=== PATIENT | female | born 1980 ===

== ENCOUNTER 2021-04-24 18:52 | Emergency (ER) | payer SELFPAY ==
[~2021-04-24] VITALS: Ht 152 cm; Wt 73.9 kg
[2021-04-24] MEDS ORDERED: KETOROLAC 30 MG/ML VIAL IVP ONE (19:30)
[2021-04-24] MEDS ORDERED: LACTATED RINGERS 1,000 ML IV ONE (19:30)
[2021-04-24] MEDS ORDERED: PANTOPRAZOLE 40 MG (PROTONIX) VIAL IV ONE (19:30)
[2021-04-24] MEDS ORDERED: ONDANSETRON 4 MG/2 ML (SDV) Z0FRAN IVP ONE (19:30)
--- NOTE | 2021-04-24 19:31 | ED Abdominal Pain ---
General Chief Complaint: Abdominal/GI Problems Stated Complaint: UPPER R SIDE PAIN Source of Information: Patient Exam Limitations: No Limitations History of Present Illness Date Seen by Provider: Apr 24, 2021 Time Seen by Provider: 19:10 Initial Comments Patient presents ER by private conveyance with her significant other and chief c anshu of intermittent abdominal pain going on for the past several months. Usually after drinking a lot for eating large meals. She has complained of early satiety for the past several months. This episode started sometime last night around 8 in the evening. Couple hours prior to that she had eaten sopas and fried chicken. She drinks malt liquor on a daily basis and had a couple beers earlier which made her pain worse. She denies having a history of any work-up for this. She has not take any medicine for it either. She says she is scared to work it up because she is afraid she might get bad news. She has had nausea but no fevers or vomiting. She had a bowel movement yesterday which was normal a little bit on the loose side she says. G1, P0, E. Ab 1. No history of abdominal surgeries. Allergies and Home Medications Allergies Coded Allergies: No Known Drug Allergies (Unverified , 04/24/21) Patient Home Medication List Home Medication List Reviewed: Yes Review of Systems Review of Systems Constitutional: No chills, No fever, No malaise EENTM: No Blurred Vision, No Double Vision Respiratory: Denies Cough, Denies Shortness of Air Cardiovascular: Denies Chest Pain, Denies Lightheadedness Gastrointestinal: See HPI, Abdominal Pain; Denies Constipated, Denies Diarrhea Genitourinary: Denies Burning, Denies Discharge Musculoskeletal: No back pain, No gout Psychiatric/Neurological: Denies Anxiety, Denies Depressed All Other Systems Reviewed Negative Unless Noted: Yes Past Vzgkthq-Umerby-Bkqtin Hx Patient Social History Alcohol Use: Regular Use Alcohol Beverage of Choice: Beer (Multiple drinks per day) Smoking Status: Current Everyday Smoker Physical Exam Vital Signs Vital Signs - First Documented 04/24/21 19:10 Temp 36.5 Pulse 90 B/P (MAP) 119/97 (104) O2 Delivery Room Air Capillary Refill : Height/Weight/BMI Height: '" Weight: lbs. oz. kg; BMI Method: General Appearance: WD/WN, mild distress HEENT: normal ENT inspection, pharynx normal Neck: full range of motion, supple, normal inspection Respiratory: lungs clear, normal breath sounds, no respiratory distress, no accessory muscle use Cardiovascular: normal peripheral pulses, regular rate, rhythm Gastrointestinal: normal bowel sounds, soft, tenderness (Right upper quadrant tenderness palpation without Cardona sign.), other (Negative for McBurney's point psoas sign or mesenteric signs) Extremities: normal range of motion, non-tender, normal capillary refill Neurologic/Psychiatric: alert, oriented x 3, other (Anxious affect) Progress/Results/Core Measures Results/Orders Lab Results Laboratory Tests Test 04/24/21 19:30 04/24/21 19:35 Range/Units White Blood Count 8.2 4.3-11.0 10^3/uL Red Blood Count 4.16 3.80-5.11 10^6/uL Hemoglobin 14.5 11.5-16.0 g/dL Hematocrit 41 35-52 % Mean Corpuscular Volume 99 80-99 fL Mean Corpuscular Hemoglobin 35 H 25-34 pg Mean Corpuscular Hemoglobin Concent 35 32-36 g/dL Red Cell Distribution Width 13.0 10.0-14.5 % Platelet Count 211 130-400 10^3/uL Mean Platelet Volume 10.8 9.0-12.2 fL Immature Granulocyte % (Auto) 0 % Neutrophils (%) (Auto) 54 42-75 % Lymphocytes (%) (Auto) 39 12-44 % Monocytes (%) (Auto) 6 0-12 % Eosinophils (%) (Auto) 1 0-10 % Basophils (%) (Auto) 0 0-10 % Neutrophils # (Auto) 4.4 1.8-7.8 10^3/uL Lymphocytes # (Auto) 3.2 1.0-4.0 10^3/uL Monocytes # (Auto) 0.5 0.0-1.0 10^3/uL Eosinophils # (Auto) 0.1 0.0-0.3 10^3/uL Basophils # (Auto) 0.0 0.0-0.1 10^3/uL Immature Granulocyte # (Auto) 0.0 0.0-0.1 10^3/uL Sodium Level 141 135-145 MMOL/L Potassium Level 2.8 L 3.6-5.0 MMOL/L Chloride Level 103 98-107 MMOL/L Carbon Dioxide Level 22 21-32 MMOL/L Anion Gap 16 H 5-14 MMOL/L Blood Urea Nitrogen 4 L 7-18 MG/DL Creatinine 0.69 0.60-1.30 MG/DL Estimat Glomerular Filtration Rate > 60 BUN/Creatinine Ratio 6 Glucose Level 107 H 70-105 MG/DL Calcium Level 8.7 8.5-10.1 MG/DL Corrected Calcium 8.6 8.5-10.1 MG/DL Total Bilirubin 0.4 0.1-1.0 MG/DL Aspartate Amino Transf (AST/SGOT) 95 H 5-34 U/L Alanine Aminotransferase (ALT/SGPT) 71 H 0-55 U/L Alkaline Phosphatase 92 40-136 U/L C-Reactive Protein High Sensitivity 0.16 0.00-0.50 MG/DL Total Protein 7.6 6.4-8.2 GM/DL Albumin 4.1 3.2-4.5 GM/DL Lipase 16 8-78 U/L Urine Color YELLOW Urine Clarity CLEAR Urine pH 6.5 5-9 Urine Specific [place] <=1.005 1.016-1.022 Urine Protein NEGATIVE NEGATIVE Urine Glucose (UA) NEGATIVE NEGATIVE Urine Ketones NEGATIVE NEGATIVE Urine Nitrite NEGATIVE NEGATIVE Urine Bilirubin NEGATIVE NEGATIVE Urine Urobilinogen 0.2 < = 1.0 MG/DL Urine Leukocyte Esterase NEGATIVE NEGATIVE Urine RBC (Auto) NEGATIVE NEGATIVE Urine RBC NONE /HPF Urine WBC NONE /HPF Urine Squamous Epithelial Cells 0-2 /HPF Urine Crystals NONE /LPF Urine Bacteria NEGATIVE /HPF Urine Casts NONE /LPF Urine Mucus NEGATIVE /LPF Urine Culture Indicated NO My Orders Orders - TANGELA TRIMBLE Ua Culture If Indicated (04/24/21 18:57) Urine Bedside (04/24/21 18:57) Cbc With Automated Diff (04/24/21 19:24) Comprehensive Metabolic Panel (04/24/21 19:24) Hs C Reactive Protein (04/24/21 19:24) Lipase (04/24/21 19:24) Ondansetron Injection (Zofran Injectio (04/24/21 19:30) Pantoprazole Injection (Protonix Injecti (04/24/21 19:30) Ketorolac Injection (Toradol Injection) (04/24/21 19:30) Ed Iv/Invasive Line Start (04/24/21 19:25) Lactated Ringers (Lr 1000 Ml Iv Solution (04/24/21 19:30) Medications Given in ED Current Medications Medications Dose Ordered Sig/Dagoberto Route Start Time Stop Time Status Last Admin Dose Admin Ketorolac Tromethamine 30 mg ONCE ONCE IVP 04/24/21 19:30 04/24/21 19:31 DC 04/24/21 19:42 30 MG Lactated Ringer's 1,000 ml @ 0 mls/hr Q0M ONCE IV 04/24/21 19:30 04/24/21 19:31 DC 04/24/21 19:38 1,000 MLS/HR Ondansetron HCl 8 mg ONCE ONCE IVP 04/24/21 19:30 04/24/21 19:31 DC 04/24/21 19:38 8 MG Pantoprazole 40 mg ONCE ONCE IV 04/24/21 19:30 04/24/21 19:31 DC 04/24/21 19:44 40 MG Vital Signs/I&O 04/24/21 19:10 Temp 36.5 Pulse 90 B/P (MAP) 119/97 (104) O2 Delivery Room Air Progress Progress Note #1: Time: 19:27 Progress Note Differential includes gastritis, pancreatitis, gallbladder or biliary duct, much less likely colon/appendicitis. Plan to give her some pantoprazole, Zofran, Toradol and a liter of IV fluids. We will check some labs and urine. Discussed for further outpatient work-up if nothing is significant tonight as ultrasound is not available presently. Aseptic vital signs. Progress Note #2: Time: 20:14 Progress Note Marginal elevation in the AST and ALT however no other evidence of bili stasis. We discussed an outpatient work-up through Dr. Mcdaniel's office and she is in agreement with this plan. Do not have ultrasound available. Her pain and nausea are gone after the medicines. We will put her on Carafate, pantoprazole and as needed Zofran. Departure Impression Primary Impression: Right upper quadrant abdominal pain Disposition: 01 HOME, SELF-CARE Condition: Improved Departure-Patient Inst. Decision time for Depature: 20:21 Referrals: BRADLEY MCDANIEL DO NO,LOCAL PHYSICIAN (PCP) Primary Care Physician Patient Instructions: Gallbladder Diet, Nausea and Vomiting, Adult ED Add. Discharge Instructions: Avoid greasy, spicy foods especially dairy. Reduce the amount of alcohol you drink as much as tolerable to reduce your symptoms. Start taking omeprazole/Prilosec 20 mg twice a day for the next month. Carafate 1 tablet half an hour before meals and at bedtime for the next 2 weeks to protect the lining of your stomach and esophagus. Zofran/ondansetron 1 tablet under the tongue every 6 hours as necessary for nausea and/or vomiting. Call Dr. Mcdaniel, general surgery and discuss an outpatient work-up of your abdominal pain and nausea. Promptly return to the ER if you are having intractable, severe pain despite Tylenol, ibuprofen, Rolaids, Tums, Mylanta/Maalox etc. or you develop a fever especially above 102.5. All discharge instructions reviewed with patient and/or family. Voiced understanding. Scripts Ondansetron (Ondansetron Odt) 4 Mg Tab.rapdis 4 MG PO Q6H PRN for NAUSEA/VOMITING, #12 TAB 0 Refills Prov: TANGELA TRIMBLE 04/24/21 Omeprazole (Omeprazole) 20 Mg Capsule.dr 20 MG PO BID for 30 Days, #60 CAP 0 Refills Prov: TANGELA TRIMBLE 04/24/21 Sucralfate (Carafate) 1 Gm Tablet 1 GM PO QIDACHS for 14 Days, #5 TAB 0 Refills Prov: TANGELA TRIMBLE 04/24/21 Work/School Note: Work Release Form Date Seen in the Emergency Department: Apr 24, 2021 Return to Work: Apr 26, 2021 Copy Copies To 1: BRADLEY MCDANIEL DO TANGELA TRIMBLE Apr 24, 2021 19:31
[2021-04-24 19:37] LABS: BASOPHILS % (AUTO) 0 % (0-10); EOSINOPHILS # (AUTO) 0.1 10^3/uL (0.0-0.3); EOSINOPHILS % (AUTO) 1 % (0-10); HEMATOCRIT 41 % (35-52); HEMOGLOBIN 14.5 g/dL (11.5-16.0); LYMPHOCYTES # (AUTO) 3.2 10^3/uL (1.0-4.0); LYMPHOCYTES % (AUTO) 39 % (12-44); MEAN CORPUSCULAR HEMOGLOBIN 35 pg (25-34); MEAN CORPUSCULAR HGB CONC 35 g/dL (32-36); MEAN CORPUSCULAR VOLUME 99 fL (80-99); MEAN PLATELET VOLUME 10.8 fL (9.0-12.2); MONOCYTES # (AUTO) 0.5 10^3/uL (0.0-1.0); MONOCYTES % (AUTO) 6 % (0-12); NEUTROPHILS # (AUTO) 4.4 10^3/uL (1.8-7.8); NEUTROPHILS % (AUTO) 54 % (42-75); PLATELET COUNT 211 10^3/uL (130-400); WHITE BLOOD COUNT 8.2 10^3/uL (4.3-11.0)
[2021-04-24 19:45] LABS: BILIRUBIN,URINE NEGATIVE (NEGATIVE); CLARITY,URINE CLEAR; COLOR,URINE YELLOW; GLUCOSE, URINE (UA) NEGATIVE (NEGATIVE); KETONES,URINE NEGATIVE (NEGATIVE); LEUKOCYTE ESTERASE ,URINE NEGATIVE (NEGATIVE); NITRITE,URINE NEGATIVE (NEGATIVE); PH,URINE 6.5 (5-9); PROTEIN,URINE NEGATIVE (NEGATIVE)
[2021-04-24 19:54] LABS: ALBUMIN 4.1 GM/DL (3.2-4.5); CHLORIDE 103 MMOL/L (98-107); POTASSIUM 2.8 MMOL/L (3.6-5.0); SODIUM 141 MMOL/L (135-145)
[2021-04-24 19:55] LABS: CALCIUM 8.7 MG/DL (8.5-10.1)
[2021-04-24 19:56] LABS: GLUCOSE 107 MG/DL (70-105); TOTAL PROTEIN 7.6 GM/DL (6.4-8.2)
[2021-04-24 19:56] LABS: BACTERIA,URINE NEGATIVE /HPF; SQUAMOUS EPITHELIAL CELL,UR 0-2 /HPF
[2021-04-24 19:57] LABS: CARBON DIOXIDE 22 MMOL/L (21-32)
[2021-04-24 19:58] LABS: BILIRUBIN,TOTAL 0.4 MG/DL (0.1-1.0)
[2021-04-24 20:00] LABS: ALKALINE PHOSPHATASE 92 U/L (40-136); CREATININE SERUM 0.69 MG/DL (0.60-1.30); GFR ESTIMATED > 60
[2021-04-24 20:01] LABS: BUN/CREATININE RATIO 6
[2021-04-24 20:03] LABS: ALANINE AMINOTRANSFERASE 71 U/L (0-55); LIPASE 16 U/L (8-78)
[2021-04-24] MEDS ORDERED: SUCR1TAB36 PO (20:25)
[2021-04-24] MEDS ORDERED: OMEP20CA18 PO (20:25)
[2021-04-24] MEDS ORDERED: ONDA4TAB11 PO (20:25)
[2021-04-24 20:30] VITALS: BP 123/96
== END 2021-04-24 20:30 | disposition home or self-care (01) ==
LOC: ER 18:55
DX: R10.11 Right upper quadrant pain (principal); F17.200 Nicotine dependence, unspecified, uncomplicated
CPT/HCPCS: 36415; 80053; 81000; 83690; 84703; 85025; 86141